=== PATIENT | male | born 1955 | race American Indian/Alaskan Native ===

== ENCOUNTER 2017-10-16 15:00 | Inpatient (IN) | payer MEDICARE ==
--- NOTE | 2017-10-16 15:25 | Cat Scan Report ---
FINAL REPORT EXAM: CT HEAD/BRAIN WO CON HISTORY: neuro deficits < 6hrs or sx present upon awakening TECHNIQUE: Standard unenhanced CT of the head at 5.0 millimeter axial increments. PRIORS: None. FINDINGS: The ventricular system is normal in size and configuration. There is mild cerebral atrophy. Remote lacunar infarct in the left thalamus is seen. There is no evidence for mass lesion, mass effect, midline shift, acute intracranial hemorrhage, or acute ischemia/ infarction. No evidence for acute skull fracture is seen. No abnormality in the overlying scalp soft tissues is seen. Visualized paranasal sinuses demonstrate mucosal thickening throughout the maxillary ethmoid sinuses bilaterally consistent with mild chronic sinusitis. Incidental cerumen in both external auditory canals are seen. IMPRESSION: Mild atrophy. Remote lacunar infarct in the left thalamus. No acute intracranial process noted. Mild chronic sinusitis
[2017-10-16 15:44] LABS: Basophils % (Auto) 0.5 % (0.0-1.8); Eosinophils # (Auto) 0.2 K/mm3 (0.0-0.4); Eosinophils % (Auto) 1.7 % (0.0-4.3); Hemoglobin 16.3 gm/dl (11.8-15.2); Lymphocytes # (Auto) 2.1 K/mm3 (1.2-5.4); Lymphocytes % (Auto) 24.1 % (13.4-35.0); Mean Corpuscular HGB Conc 33 % (32-34); Mean Corpuscular Hemoglobin 31 pg (28-32); Mean Corpuscular Volume 94 fl (84-94); Monocytes # (Auto) 0.6 K/mm3 (0.0-0.8); Platelet Count 332 K/mm3 (140-440); Red Blood Count 5.33 M/mm3 (3.65-5.03); Red Cell Distribution Width 15.5 % (13.2-15.2)
[2017-10-16 15:53] LABS: INR 0.9 (0.87-1.13)
[2017-10-16 15:54] LABS: Partial Thromboplastin Time 28.6 Sec. (24.2-36.6)
[2017-10-16 16:03] LABS: BUN/Creatinine Ratio 7; Blood Urea Nitrogen 5 mg/dL (9-20); Calcium 10.1 mg/dL (8.4-10.2); Hemolysis Index 13
--- NOTE | 2017-10-16 16:32 | Emergency Department Report ---
HPI - General Chief Complaint: Neuro Symptoms/Deficit Time Seen by Provider: 10/16/17 15:39 - HPI HPI: Patient stated he was very dizzy last night when he went to bed. He has a history of CVA, hypertension, diabetes. One woke up this morning around 9 he had some left-sided weakness significant from his baseline and noticed a right facial droop to the point that he couldn't talk as prior. He denies any fall, but remains dizzy. Patient stated he is been compliant with medications. Patient is accompanied by son who help with the history. ED Past Medical Hx - Past Medical History Hx Hypertension: Yes Hx CVA: Yes Hx Diabetes: Yes - Surgical History Past Surgical History?: No - Social History Smoking Status: Current Every Day Smoker Substance Use Type: Alcohol ED Review of Systems ROS: Stated complaint: POSSIBLE STROKE Other details as noted in HPI Comment: All other systems reviewed and negative Musculoskeletal: denies: as per HPI Skin: denies: as per HPI Neurological: weakness Physical Exam - Physical Exam Vital Signs: Vital Signs 10/16/17 10/16/17 10/16/17 15:23 15:29 15:31 Temperature 99 F Pulse Rate 64 74 Respiratory 16 16 Rate Blood Pressure 146/92 Blood Pressure [Left] O2 Sat by Pulse 96 Oximetry 10/16/17 16:00 Temperature 98.8 F Pulse Rate 65 Respiratory 16 Rate Blood Pressure Blood Pressure 176/91 [Left] O2 Sat by Pulse 100 Oximetry Physical Exam: - Physical Exam Physical Exam: - General Limitations: No Limitations General appearance: alert, in no apparent distress, obese - Head Head exam: Present: atraumatic, normocephalic - Eye Eye exam: Present: normal appearance - ENT ENT exam: Present: mucous membranes moist - Neck Neck exam: Present: normal inspection - Respiratory Respiratory exam: Present: normal lung sounds bilaterally. Absent: respiratory distress - Cardiovascular Cardiovascular Exam: Present: normal rhythm, tachycardia. Absent: systolic murmur, diastolic murmur, rubs, gallop - GI/Abdominal GI/Abdominal exam: Present: soft, normal bowel sounds - Extremities Exam Extremities exam: Present: normal inspection - Back Exam Back exam: Present: normal inspection - Neurological Exam Neurological exam: Present: alert, left-sided weakness 2 out of 5. Right facial droop. NIH Stroke Scale: 2 points, at 1355 - Psychiatric Psychiatric exam: normal affect and mood - Skin Skin exam: Present: warm, dry, intact, normal color. Absent: rash ED Course Vital Signs 10/16/17 10/16/17 10/16/17 15:23 15:29 15:31 Temperature 99 F Pulse Rate 64 74 Respiratory 16 16 Rate Blood Pressure 146/92 Blood Pressure [Left] O2 Sat by Pulse 96 Oximetry 10/16/17 16:00 Temperature 98.8 F Pulse Rate 65 Respiratory 16 Rate Blood Pressure Blood Pressure 176/91 [Left] O2 Sat by Pulse 100 Oximetry ED Medical Decision Making - Lab Data Result diagrams: 10/16/17 15:32 10/16/17 15:32 Critical care attestation.: If time is entered above; I have spent that time in minutes in the direct care of this critically ill patient, excluding procedure time. ED Disposition Condition: Stable Referrals: PRIMARY CARE, [Primary Care Provider] - 3-5 Days
[2017-10-16] MEDS ORDERED: SODIUM CHLORIDE FLUSH SYRINGE 10 ML IV PRN (22:39)
[2017-10-16] MEDS ORDERED: MORPHINE IV PRN (22:39)
[2017-10-16] MEDS ORDERED: PERCOCET 5/325 PO PRN (22:39)
[2017-10-16] MEDS ORDERED: ZOFRAN IV PRN (22:39)
[2017-10-16] MEDS ORDERED: TYLENOL PO PRN (22:39)
[2017-10-16] MEDS ORDERED: SODIUM CHLORIDE FLUSH SYRINGE 10 ML INJ PRN (22:40)
--- NOTE | 2017-10-16 22:43 | History and Physical Report ---
History of Present Illness Date of examination: 10/16/17 Date of admission: 10/16/17 16:32 Chief complaint: CC L sided weakness since last night History of present illness: NINILCHIK: 62 y/o AAM with PMH of HTN T2DM HLD and past CVA with Rt Hemiparesis comes in for Lt sided weakness since last night.Able to walk but feels weak on L side.Also had difficulty talking.No fever or chills. Past Medical History Hx Hypertension: Yes Hx CVA: Yes Hx Diabetes: Yes -Surgical History Past Surgical History?: No -Social History Smoking Status: Current Every Day Smoker Substance Use Type: Alcohol Family history Htn Review of Systems Stated complaint: POSSIBLE STROKE Other details as noted in HPI Comment: All other systems reviewed and negative Musculoskeletal: denies: as per HPI Skin: denies: as per HPI Neurological: weakness Medications and Allergies Allergies Allergy/AdvReac Type Severity Reaction Status Date / Time No Known Allergies Allergy Verified 10/16/17 22:42 Home Medications Medication Instructions Recorded Confirmed Last Taken Type AtorvaSTATin [Lipitor] 80 mg PO QHS 10/16/17 10/16/17 08/17/17 History Hydrochlorothiazide 37.5 mg PO DAILY 10/16/17 10/16/17 08/17/17 History Lisinopril [Zestril TAB] 40 mg PO DAILY 10/16/17 10/16/17 08/17/17 History Metoprolol [Lopressor TAB] 25 mg PO BID 10/16/17 10/16/17 08/17/17 History Pioglitazone HCl [Actos] 30 mg PO DAILY 10/16/17 10/16/17 08/17/17 History amLODIPine [Norvasc] 10 mg PO DAILY 10/16/17 10/16/17 08/17/17 History metFORMIN [Glucophage] 1,000 mg PO BID 10/16/17 10/16/17 2 Months Ago History ~08/18/17 Exam - Constitutional Vitals: Temp Pulse Resp BP Pulse Ox 98.4 F 63 20 166/91 98 10/16/17 22:07 10/16/17 22:07 10/16/17 22:07 10/16/17 22:07 10/16/17 22:07 General appearance: Present: no acute distress, well-nourished - EENT Eyes: Present: PERRL ENT: hearing intact, clear oral mucosa - Neck Neck: Present: supple, normal ROM - Respiratory Respiratory effort: normal Respiratory: bilateral: CTA - Cardiovascular Heart rate: 61 Rhythm: regular Heart Sounds: Present: S1 & S2. Absent: rub, click - Extremities Extremities: no ischemia, pulses intact, pulses symmetrical, No edema Peripheral Pulses: within normal limits - Abdominal General gastrointestinal: Present: soft, non-tender, non-distended, normal bowel sounds Male genitourinary: Present: normal - Integumentary Integumentary: Present: clear, warm, dry - Musculoskeletal Musculoskeletal: gait normal, strength equal bilaterally - Psychiatric Psychiatric: appropriate mood/affect, intact judgment & insight, cooperative - Neurologic Neurologic: CNII-XII intact, focal deficits, other (LUE/LLE --weakness 3/5 power Gait abnormal) Results - Labs CBC & Chem 7: 10/17/17 06:08 10/17/17 06:08 Labs: Laboratory Last Values WBC 8.7 K/mm3 (4.5-11.0) 10/16/17 15:32 RBC 5.33 M/mm3 (3.65-5.03) H 10/16/17 15:32 Hgb 16.3 gm/dl (11.8-15.2) H 10/16/17 15:32 Hct 50.0 % (35.5-45.6) H 10/16/17 15:32 MCV 94 fl (84-94) 10/16/17 15:32 MCH 31 pg (28-32) 10/16/17 15:32 MCHC 33 % (32-34) 10/16/17 15:32 RDW 15.5 % (13.2-15.2) H 10/16/17 15:32 Plt Count 332 K/mm3 (140-440) 10/16/17 15:32 Lymph % (Auto) 24.1 % (13.4-35.0) 10/16/17 15:32 [place] % (Auto) 7.0 % (0.0-7.3) 10/16/17 15:32 Eos % (Auto) 1.7 % (0.0-4.3) 10/16/17 15:32 Baso % (Auto) 0.5 % (0.0-1.8) 10/16/17 15:32 Lymph # 2.1 K/mm3 (1.2-5.4) 10/16/17 15:32 [place] # 0.6 K/mm3 (0.0-0.8) 10/16/17 15:32 Eos # 0.2 K/mm3 (0.0-0.4) 10/16/17 15:32 Baso # 0.0 K/mm3 (0.0-0.1) 10/16/17 15:32 Seg Neutrophils % 66.7 % (40.0-70.0) 10/16/17 15:32 Seg Neutrophils # 5.8 K/mm3 (1.8-7.7) 10/16/17 15:32 PT 12.6 Sec. (12.2-14.9) 10/16/17 15:32 INR 0.90 (0.87-1.13) 10/16/17 15:32 APTT 28.6 Sec. (24.2-36.6) 10/16/17 15:32 Thrombin Time 16.1 Sec. (15.1-19.6) 10/16/17 15:32 Sodium 139 mmol/L (137-145) 10/16/17 15:32 Potassium 3.7 mmol/L (3.6-5.0) 10/16/17 15:32 Chloride 95.3 mmol/L (98-107) L 10/16/17 15:32 Carbon Dioxide 31 mmol/L (22-30) H 10/16/17 15:32 Anion Gap 16 mmol/L 10/16/17 15:32 BUN 5 mg/dL (9-20) L 10/16/17 15:32 Creatinine 0.7 mg/dL (0.8-1.5) L 10/16/17 15:32 Estimated GFR > 60 ml/min 10/16/17 15:32 BUN/Creatinine Ratio 7 % 10/16/17 15:32 Glucose 211 mg/dL (75-100) H 10/16/17 15:32 Calcium 10.1 mg/dL (8.4-10.2) 10/16/17 15:32 Troponin T < 0.010 ng/mL (0.00-0.029) 10/16/17 15:32 Short CBC 10/16/17 10/17/17 Range/Units 15:32 06:08 WBC 8.7 11.1 H (4.5-11.0) K/mm3 Hgb 16.3 H 14.6 (11.8-15.2) gm/dl Hct 50.0 H 44.0 D (35.5-45.6) % Plt Count 332 299 (140-440) K/mm3 BMP 10/16/17 10/17/17 15:32 06:08 Sodium 139 140 Potassium 3.7 3.3 L Chloride 95.3 L 99.2 Carbon Dioxide 31 H 25 BUN 5 L 6 L Creatinine 0.7 L 0.5 L Glucose 211 H 166 H Calcium 10.1 9.5 Cardiac Enzymes 10/16/17 Range/Units 15:32 Troponin T < 0.010 (0.00-0.029) ng/mL Liver Function 10/17/17 Range/Units 06:08 Total Bilirubin 0.40 (0.1-1.2) mg/dL AST 12 (5-40) units/L ALT 13 (7-56) units/L Alkaline Phosphatase 62 (35-129) units/L Albumin 3.5 L (3.9-5) g/dL - Imaging and Cardiology EKG: report reviewed (NSR 68/min) Imaging and Cardiology: CT Head IMPRESSION: Mild atrophy. Remote lacunar infarct in the left thalamus. No acute intracranial process noted. Mild chronic sinusitis Assessment and Plan Advance Directives: Yes (Full code) VTE prophylaxis?: Chemical Plan of care discussed with patient/family: Yes - Patient Problems (1) Acute CVA (cerebrovascular accident) Current Visit: Yes Status: Acute Plan to address problem: Rt hemispheric Out of window for TPA CVA w/u involving MRI/MRA/CDS/ECHO Neuro consult requested CT head old left lacunar infarct c/w old Rt Hemiparesis (2) Hypokalemia Current Visit: Yes Status: Acute Plan to address problem: Supplemented (3) HTN (hypertension) Current Visit: Yes Status: Chronic Qualifiers: Hypertension type: essential hypertension Qualified Code(s): I10 - Essential (primary) hypertension Plan to address problem: Cont antihypertensives (4) T2DM (type 2 diabetes mellitus) Current Visit: Yes Status: Chronic Qualifiers: Diabetes mellitus termite exterminator insulin use: without termite exterminator use Plan to address problem: Cont oral hypoglycemics and coverage Check A1c (5) HLD (hyperlipidemia) Current Visit: Yes Status: Chronic Qualifiers: Hyperlipidemia type: mixed hyperlipidemia Qualified Code(s): E78.2 - Mixed hyperlipidemia Plan to address problem: Cont statins (6) Malnutrition Current Visit: Yes Status: Chronic Qualifiers: Protein-calorie malnutrition severity: mild Plan to address problem: Dietitian consult (7) DVT prophylaxis Current Visit: Yes Status: Acute Plan to address problem: on Heparin
[2017-10-17 06:35] LABS: Basophils # (Auto) 0.1 K/mm3 (0.0-0.1); Basophils % (Auto) 0.7 % (0.0-1.8); Eosinophils # (Auto) 0.2 K/mm3 (0.0-0.4); Hemoglobin 14.6 gm/dl (11.8-15.2); Lymphocytes # (Auto) 3.1 K/mm3 (1.2-5.4); Lymphocytes % (Auto) 28.1 % (13.4-35.0); Mean Corpuscular HGB Conc 33 % (32-34); Mean Corpuscular Hemoglobin 31 pg (28-32); Mean Corpuscular Volume 92 fl (84-94); Monocytes # (Auto) 0.9 K/mm3 (0.0-0.8); Monocytes % (Auto) 7.7 % (0.0-7.3); Platelet Count 299 K/mm3 (140-440); Red Blood Count 4.81 M/mm3 (3.65-5.03); Red Cell Distribution Width 15.3 % (13.2-15.2)
[2017-10-17 07:03] LABS: Alanine Aminotransferase 13 units/L (7-56); Albumin 3.5 g/dL (3.9-5); BUN/Creatinine Ratio 12; Blood Urea Nitrogen 6 mg/dL (9-20); Calcium 9.5 mg/dL (8.4-10.2); Chol/HDL Ratio 7.38 %; HDL Cholesterol 26 mg/dL (40-59); Hemolysis Index 3; LDL Cholesterol,Direct 141 mg/dL (50-130)
[2017-10-17] MEDS: HumaLOG SUB-Q SCH ×4 (07:50→22:46)
[2017-10-17] MEDS ORDERED: K-DUR PO NR (09:00)
[2017-10-17] MEDS: GLUCOPHAGE PO SCH ×2 (09:26→21:04)
[2017-10-17] MEDS: ACTOS PO SCH (09:27)
[2017-10-17] MEDS ORDERED: NON-FORMULARY (Pioglitazone Hcl [Actos] 30 MG) PO SCH (10:00)
[2017-10-17] MEDS ORDERED: ASPIRIN PO NR (10:37)
[2017-10-17] MEDS: LOPRESSOR PO SCH ×2 (11:25→22:31)
[2017-10-17] MEDS: NORVASC PO SCH (11:25)
[2017-10-17] MEDS: ZESTRIL PO SCH (11:26)
[2017-10-17] MEDS: HEPARIN SUB-Q SCH ×2 (11:31→22:46)
[2017-10-17] MEDS ORDERED: PNEUMOVAX 23 IM ONE (12:00)
[2017-10-17] MEDS ORDERED: Fluarix Quad 2017-2018(36 MOS+ IM ONE (12:00)
--- NOTE | 2017-10-17 12:42 | Consultation ---
History of Present Illness Consult date: 10/17/17 Requesting physician: LUCIANO VILLALOBOS Reason for Consult: stroke Chief complaint: weakness left side History of present illness: This 61-year-old right-handed -Bangladeshi male per ER physician yesterday: "was very dizzy last night when he went to bed. He has a history of CVA, hypertension, diabetes. One woke up this morning around 9 he had some left- sided weakness significant from his baseline and noticed a right facial droop to the point that he couldn't talk as prior. He denies any fall, but remains dizzy." He states he noticed Fridays some dizziness and left arm and leg weakness and numbness of the left side of his face which persisted or became more noticeable sided asymmetric came in yesterday. He did not check his blood pressure at home. He says he takes 81 mg aspirin daily. His bag of medications shows metformin, pioglitazone, hydrochlorothiazide, amlodipine, metoprolol, atorvastatin 80 mg, lisinopril 40 mg. He gives a history of stroke affecting his right side 2 or 3 years ago since which he has used a cane. Past History Past Medical History: diabetes, hypertension, stroke Social history: single, lives with family (lives with brother, has 3 grown children.), smoking (1 pack per week), alcohol abuse (one provider Shaniqua twice a week, 3 small beers per week spread out). denies: prescription drug abuse, IV drug use (no illicit drugs. 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) Medications and Allergies Allergies Allergy/AdvReac Type Severity Reaction Status Date / Time No Known Allergies Allergy Verified 10/16/17 22:42 Home Medications Medication Instructions Recorded Confirmed Last Taken Type AtorvaSTATin [Lipitor] 80 mg PO QHS 10/16/17 10/16/17 08/17/17 History Hydrochlorothiazide 37.5 mg PO DAILY 10/16/17 10/16/17 08/17/17 History Lisinopril [Zestril TAB] 40 mg PO DAILY 10/16/17 10/16/17 08/17/17 History Metoprolol [Lopressor TAB] 25 mg PO BID 10/16/17 10/16/17 08/17/17 History Pioglitazone HCl [Actos] 30 mg PO DAILY 10/16/17 10/16/17 08/17/17 History amLODIPine [Norvasc] 10 mg PO DAILY 10/16/17 10/16/17 08/17/17 History metFORMIN [Glucophage] 1,000 mg PO BID 10/16/17 10/16/17 2 Months Ago History ~08/18/17 Active Meds: Active Medications Acetaminophen (Tylenol) 650 mg PO Q4H PRN PRN Reason: Pain MILD(1-3)/Fever >100.5/BISHOP Amlodipine Besylate (Norvasc) 10 mg PO DAILY [facility] Aspirin (Aspirin) 325 mg PO ONCE NR Stop: 10/17/17 13:00 Aspirin (Baby Aspirin) 81 mg PO QDAY [facility] Atorvastatin Calcium (Lipitor) 80 mg PO QHS [facility] Heparin Sodium (Porcine) (Heparin) 5,000 unit SUB-Q Q12HR [facility] Potassium Chloride (Kcl 10meq/100ml) 10 meq in 100 mls @ 100 mls/hr IV Q1H [facility] Stop: 10/17/17 12:59 Insulin Human Lispro (Humalog) 0 unit SUB-Q ACHS [facility]; Protocol Lisinopril (Zestril) 40 mg PO DAILY [facility] Metformin HCl (Glucophage) 1,000 mg PO BIDDIAB [facility] Metoprolol Tartrate (Lopressor) 25 mg PO BID [facility] Morphine Sulfate (Morphine) 2 mg IV Q4H PRN PRN Reason: Pain, Moderate (4-6) Nicotine (Habitrol) 7 mg TD Q24H [facility] Ondansetron HCl (Zofran) 4 mg IV Q8H PRN PRN Reason: Nausea And Vomiting Oxycodone/Acetaminophen (Percocet 5/325) 1 tab PO Q6H PRN PRN Reason: Pain, Moderate (4-6) Pioglitazone HCl (Actos) 30 mg PO QDDIAB [facility] Sodium Chloride (Sodium Chloride Flush Syringe 10 Ml) 10 ml IV BID [facility] Sodium Chloride (Sodium Chloride Flush Syringe 10 Ml) 10 ml IV PRN PRN PRN Reason: LINE FLUSH Review of Systems All systems: negative (no headaches, dizziness only this past Tuesday, no snoring but takes 15-20 minute nap once a day but no other dozing off. Does not drive. No memory problems.) Physical Examination - Vital Signs Vital Signs: Vital Signs Temp Pulse Resp BP 99 F 64 16 146/92 10/16/17 15:23 10/16/17 15:23 10/16/17 15:23 10/16/17 15:23 - Physical Exam Narrative exam: General Appearance: well developed well nourished (per BMI) early 60s - Bangladeshi male in NAD, using nasal oxygen. HEENT: atraumatic, normocephalic; no bruits, 2+ Gladys without soreness or induration or enlargement, sclerae nonicteric. Oropharynx pink and moist. Neck: supple, no bruits. Heart: no murmur or extra sounds. Extremities: no clubbing, cyanosis or edema. 2+ posterior tibial pulses bilaterally. Neurologic Exam: Mental Status: Awake, alert, oriented to October 17 but cannot give year until I give him 1999 as prompt but then gives "18" , speech is slurred, names pen and nozzle or filter of pen instead of tip but gets comb and its teeth, and abstracts well. Names President but not Dimension Quarry Supervisor, serial 7's cannot be done and gives 5+7 = 16, no right-left confusion, gets 2 of 3 objects at 3 minutes, spells WORLD backwards with one transposition. Cranial Nerves: mchugh full, no papilledema, SVPs present, PERRLA, EOMs full with gaze evoked horizontal nystagmus with quick phase to left on left lateral gaze but no diplopia, facial sensation decreased to pinprick in the left V1 and V2 but intact to light touch, down turned left corner of mouth, Pinon is midline , palate rises symmetrically to phonation and gags are positive, shoulder shrug is 5 right and 0 left, tongue protrudes midline. Cerebellar: finger to nose dysmetric right but cannot do on the left, heel to prince dysmetric right and cannot do on the left due to weakness. Sensory: intact to light touch and pinprick, decreased vibrations right ankle and toes and left toes. Double simultaneous stimulation sometimes shows extinction on either foot though sometimes intact. Motor Exam Upper Extremities: No drift or pronation on the right, flaccid on the left. Internal rotation is 4- on the left, triceps 1+ in the left, biceps and breaker machine operator are 0 on the left. Conveyor Attendant is 5 on the right, tone is perhaps slightly increased on the right but decreased on the left. No atrophy or fasciculations are noted visually. Susie ok right but can't do on the left. Motor Exam Lower Extremities: Lifts right leg well with quadriceps, anterior tibial and gastrocnemius all 5. Quadriceps is 2+ left, cannot lift heel off bed even with knee supported. Anterior tibialis 5- left and gastrocnemius is 4 + left. Left leg is abducted. Susie very slow on the left but normal on the right. Tone is normal. No atrophy or fasciculations are noted visually. Reflexes: Palmomental, snout and jaw jerk are negative. Triceps are 1 right and trace left, biceps are 1+ right and trace left and brachioradialis are 1 right and trace left. Sanjana's is negative bilaterally. Knee jerks are 1+ right and 0 left even with reinforcement, and ankle jerks are 0 bilaterally becoming 1 on the right with reinforcement and with slowing of relaxation phase and 0 on the left remaining 0 even with reinforcement and without clonus. Toes are downgoing right and slightly downgoing left to Babinski testing. - Assessment Assessment Interval: Baseline - Level of Consciousness 1a. Level of Consciousness: alert - LOC Questions 1b. LOC Questions: answers correctly - LOC Command 1c. LOC Commands: performs tasks correctly - Best Gaze 2. Best Gaze: normal - Visual 3. Visual: no visual loss - Facial Palsy 4. Facial Palsy: normal symmetrical movement - Motor Arm 5b. Motor Arm Right: no drift - Motor Leg 6a. Motor Leg Left: no drift - Limb Ataxia 7. Limb Ataxia: absent - Sensory 8. Sensory: normal - Best Language 9. Best Language: no aphasia - Dysarthria 10. Dysarthria: mild/moderate dysarthria - Extinction and Inattention 11. Extinction/Inattention: no abnormality Results - Laboratory Findings CBC and BMP: 10/17/17 06:08 10/17/17 06:08 Abnormal Lab Findings: Abnormal Labs 10/16/17 10/16/17 10/16/17 15:32 15:32 23:07 WBC RBC 5.33 H Hgb 16.3 H Hct 50.0 H RDW 15.5 H Nelson % (Auto) Nelson # Potassium Chloride 95.3 L Carbon Dioxide 31 H BUN 5 L Creatinine 0.7 L Glucose 211 H Hemoglobin A1c 8.7 H Magnesium Albumin LDL Cholesterol Direct HDL Cholesterol 10/17/17 10/17/17 10/17/17 06:08 06:08 06:08 WBC 11.1 H RBC Hgb Hct RDW 15.3 H Nelson % (Auto) 7.7 H Nelson # 0.9 H Potassium 3.3 L Chloride Carbon Dioxide BUN 6 L Creatinine 0.5 L Glucose 166 H Hemoglobin A1c Magnesium 1.40 L Albumin 3.5 L LDL Cholesterol Direct 141 H HDL Cholesterol 26 L Assessment and Plan Impression: 1. Stroke, embolic 2. Hypertension 3. Diabetes 4. Tobacco abuse 5. ETOH abuse Plan: 1. MRI/MRA brain pending. 2. Echo with bubbles pending. 3. Ordered nicotine 7 mg patch. He said he has not been able to buy patches since too expensive. I suggested he buy nicotine gum once he is home. 4. PT/OT previously ordered. 5. Would not change to Plavix since should stop smoking and decrease ETOH first. 6. Depending on MRI results, may also need 30 day event monitoring for PAF as outpatient. 7. Will provide addendum after reviewing echo and MRI/MRA results and results of Duplex. Will then sign off if no unusual findings. 45 min spent including later review of 100's of MRI images. Thank you for an interesting consultation on this unfortunate early 60's man.
--- NOTE | 2017-10-17 13:32 | Progress Note ---
Assessment and Plan Assessment and plan: Acute CVA (cerebrovascular accident) with new left hemiparesis -Continue aspirin and Lipitor. -Continue PT/OT. -Head CT scan showed remote lacunar infarct in the left thalamus. -MRI brain and MRA head pending. -Neurology following. Hypokalemia and hypomagnesemia. -On repletion, we will monitor levels. Uncontrolled HTN (hypertension) -Continue metoprolol and amlodipine, and adjust as needed. NIDDM (type 2 diabetes mellitus) -Blood glucose controlled on sliding scale insulin and metformin. -A1c: 8.7 HLD (hyperlipidemia) -Cont statins Mild protein-calorie malnutrition -Dietitian following. Disposition: Discharge patient when medically stable. He is likely to need rehabilitation placement. History Interval history: Patient is a 62-year-old male admitted for acute CVA. He denies any new complaints. Hospitalist Physical - Constitutional Vitals: Temp Pulse Resp BP Pulse Ox 98.2 F 58 L 20 158/85 99 10/17/17 09:08 10/17/17 09:08 10/17/17 09:08 10/17/17 09:08 10/17/17 12:04 General appearance: Present: no acute distress, well-nourished - EENT Eyes: Present: PERRL, EOM intact ENT: hearing intact - Neck Neck: Present: supple - Respiratory Respiratory effort: normal Respiratory: bilateral: CTA - Cardiovascular Rhythm: regular Heart Sounds: Present: S1 & S2 - Extremities Extremities: No edema - Abdominal General gastrointestinal: soft, non-tender, normal bowel sounds - Neurologic Neurologic: other (left hemiparesis) Results - Labs CBC & Chem 7: 10/17/17 06:08 10/17/17 06:08 Labs: Laboratory Last Values WBC 11.1 K/mm3 (4.5-11.0) H 10/17/17 06:08 RBC 4.81 M/mm3 (3.65-5.03) 10/17/17 06:08 Hgb 14.6 gm/dl (11.8-15.2) 10/17/17 06:08 Hct 44.0 % (35.5-45.6) D 10/17/17 06:08 MCV 92 fl (84-94) 10/17/17 06:08 MCH 31 pg (28-32) 10/17/17 06:08 MCHC 33 % (32-34) 10/17/17 06:08 RDW 15.3 % (13.2-15.2) H 10/17/17 06:08 Plt Count 299 K/mm3 (140-440) 10/17/17 06:08 Lymph % (Auto) 28.1 % (13.4-35.0) 10/17/17 06:08 Jones % (Auto) 7.7 % (0.0-7.3) H 10/17/17 06:08 Eos % (Auto) 2.0 % (0.0-4.3) 10/17/17 06:08 Baso % (Auto) 0.7 % (0.0-1.8) 10/17/17 06:08 Lymph # 3.1 K/mm3 (1.2-5.4) 10/17/17 06:08 Jones # 0.9 K/mm3 (0.0-0.8) H 10/17/17 06:08 Eos # 0.2 K/mm3 (0.0-0.4) 10/17/17 06:08 Baso # 0.1 K/mm3 (0.0-0.1) 10/17/17 06:08 Seg Neutrophils % 61.5 % (40.0-70.0) 10/17/17 06:08 Seg Neutrophils # 6.8 K/mm3 (1.8-7.7) 10/17/17 06:08 PT 12.6 Sec. (12.2-14.9) 10/16/17 15:32 INR 0.90 (0.87-1.13) 10/16/17 15:32 APTT 28.6 Sec. (24.2-36.6) 10/16/17 15:32 Thrombin Time 16.1 Sec. (15.1-19.6) 10/16/17 15:32 Sodium 140 mmol/L (137-145) 10/17/17 06:08 Potassium 3.3 mmol/L (3.6-5.0) L 10/17/17 06:08 Chloride 99.2 mmol/L (98-107) 10/17/17 06:08 Carbon Dioxide 25 mmol/L (22-30) 10/17/17 06:08 Anion Gap 19 mmol/L 10/17/17 06:08 BUN 6 mg/dL (9-20) L 10/17/17 06:08 Creatinine 0.5 mg/dL (0.8-1.5) L 10/17/17 06:08 Estimated GFR > 60 ml/min 10/17/17 06:08 BUN/Creatinine Ratio 12 % 10/17/17 06:08 Glucose 166 mg/dL (75-100) H 10/17/17 06:08 Hemoglobin A1c 8.7 % (4-6) H 10/16/17 23:07 Calcium 9.5 mg/dL (8.4-10.2) 10/17/17 06:08 Magnesium 1.40 mg/dL (1.7-2.3) L 10/17/17 06:08 Total Bilirubin 0.40 mg/dL (0.1-1.2) 10/17/17 06:08 AST 12 units/L (5-40) 10/17/17 06:08 ALT 13 units/L (7-56) 10/17/17 06:08 Alkaline Phosphatase 62 units/L (35-129) 10/17/17 06:08 Troponin T < 0.010 ng/mL (0.00-0.029) 10/16/17 15:32 Total Protein 6.6 g/dL (6.3-8.2) 10/17/17 06:08 Albumin 3.5 g/dL (3.9-5) L 10/17/17 06:08 Albumin/Globulin Ratio 1.1 % 10/17/17 06:08 Triglycerides 99 mg/dL (2-149) 10/17/17 06:08 Cholesterol 192 mg/dL (50-199) 10/17/17 06:08 LDL Cholesterol Direct 141 mg/dL (50-130) H 10/17/17 06:08 HDL Cholesterol 26 mg/dL (40-59) L 10/17/17 06:08 Cholesterol/HDL Ratio 7.38 % 10/17/17 06:08
[2017-10-17] MEDS: SODIUM CHLORIDE FLUSH SYRINGE 10 ML IV SCH (14:33)
[2017-10-17] MEDS ORDERED: MAGNESIUM SULFATE 2GM/50ML 2 GM/50 ML BAG IV ONE (14:34)
[2017-10-17] MEDS: KCL 10MEQ/100ML 10 MEQ/100 ML BAG IV SCH (21:04)
[2017-10-17] MEDS: HABITROL TD SCH (21:04)
[2017-10-18] MEDS: SODIUM CHLORIDE FLUSH SYRINGE 10 ML IV SCH ×3 (00:49→21:20)
--- NOTE | 2017-10-18 08:57 | Progress Note ---
Assessment and Plan Acute CVA (cerebrovascular accident) with new left hemiparesis -Continue aspirin and Lipitor. -Continue PT/OT. -Head CT scan showed remote lacunar infarct in the left thalamus. -MRI brain showed subacute ischemia on the right emmanuelle and MRA was normal -Neurology following. -Echo shows 55-60% EF. Hypokalemia and hypomagnesemia. -Will replete. we will monitor levels. Uncontrolled HTN (hypertension) -Continue with metoprolol and amlodipine. NIDDM (type 2 diabetes mellitus) -Blood glucose controlled on sliding scale insulin and metformin. and Consistent CHO diet -A1c: 8.7 HLD (hyperlipidemia) -Cont statins Mild protein-calorie malnutrition -Dietitian following. DVT PPx with lovenox Disposition: Discharge patient when medically stable. He is likely to need rehabilitation placement. Subjective Date of service: 10/18/17 Principal diagnosis: acute stroke Interval history: Pt seen and examined. No new complaint. Going to acute inpt rehab. Review laboratory and radiological data Objective - Constitutional Vitals: Vital Signs - 12hr 10/17/17 10/17/17 10/17/17 21:00 21:19 21:48 Temperature 98.2 F Pulse Rate 78 57 L Respiratory 18 Rate Blood Pressure Blood Pressure 158/85 [Left] O2 Sat by Pulse 99 99 Oximetry 10/17/17 10/17/17 10/18/17 22:00 22:31 01:02 Temperature 98.8 F Pulse Rate 58 L 77 Respiratory 20 18 Rate Blood Pressure 153/90 Blood Pressure 153/93 [Left] O2 Sat by Pulse 99 Oximetry 10/18/17 10/18/17 05:00 07:01 Temperature 98.3 F Pulse Rate 77 95 H Respiratory 18 Rate Blood Pressure Blood Pressure 141/90 [Left] O2 Sat by Pulse 95 Oximetry General appearance: Present: no acute distress, well-nourished - EENT Eyes: PERRL, EOM intact - Neck Neck: supple, normal ROM - Respiratory Respiratory effort: normal Respiratory: bilateral: CTA - Cardiovascular Rhythm: regular Heart Sounds: Present: S1 & S2. Absent: gallop, rub Extremities: pulses intact, No edema, normal color, Full ROM - Gastrointestinal General gastrointestinal: Present: soft, non-tender, non-distended, normal bowel sounds - Integumentary Integumentary: clear, warm, dry - Musculoskeletal Musculoskeletal: left sided weakness - Neurologic Neurologic: CNII-XII intact, other (left hemiparesis) - Psychiatric Psychiatric: memory intact, appropriate mood/affect, intact judgment & insight - Labs CBC & Chem 7: 10/17/17 06:08 10/18/17 07:41 Labs: Abnormal lab results 10/17/17 10/17/17 10/17/17 Range/Units 06:08 12:22 17:31 POC Glucose 217 H 193 H (70-105) Magnesium 1.40 L (1.7-2.3) mg/dL 10/17/17 Range/Units 22:00 POC Glucose 215 H (70-105) Magnesium (1.7-2.3) mg/dL
[2017-10-18] MEDS ORDERED: K-DUR PO NR (08:58)
[2017-10-18] MEDS: HumaLOG SUB-Q SCH ×4 (09:10→22:00)
--- NOTE | 2017-10-18 09:31 | Magnetic Resonance Report ---
MRI OF THE BRAIN WITHOUT CONTRAST: HISTORY: Stroke PROCEDURE: Multiplanar, multisequence MR imaging of the brain without IV contrast was performed. FINDINGS: CT head without contrast dated 10/16/17 was reviewed. MRI demonstrates 2 areas of diffusion restriction in the right emmanuelle measuring 1.2 cm and 1.1 cm on diffusion image 13. There is no evidence for hemorrhage, mass or extra-axial fluid collection. Mild nonspecific chronic white matter changes are again noted. Chronic 8 mm lacunar infarct in the left thalamus is again noted. The midline structures are central. The basal cisterns are patent. Normal ventricular size. The orbital cavities and sella turcica demonstrate no abnormality. Mild mucosal thickening is noted in the ethmoid and maxillary sinuses. 1 cm mucous retention cyst in the inferior left maxillary sinus. The mastoid air cells are adequately aerated. IMPRESSION: 2 areas of subacute ischemia are identified in the right emmanuelle as described.
--- NOTE | 2017-10-18 09:31 | Magnetic Resonance Report ---
MRA HEAD WITHOUT CONTRAST HISTORY: Stroke. [id number] imaging with MIP reformations of the [place] is submitted. NASCET criteria were utilized. The arteries appear widely patent and free of hemodynamically significant stenosis, aneurysm or dissection. IMPRESSION: Unremarkable MRA head.
[2017-10-18 09:39] LABS: BUN/Creatinine Ratio 13; Blood Urea Nitrogen 8 mg/dL (9-20); Calcium 9.8 mg/dL (8.4-10.2); Hemolysis Index 8
[2017-10-18] MEDS ORDERED: HYDROCHLOROTHIAZIDE PO SCH (10:00)
[2017-10-18] MEDS: HCTZ PO SCH ×2 (11:07→11:08)
[2017-10-18] MEDS: ZESTRIL PO SCH (11:08)
[2017-10-18] MEDS: LOPRESSOR PO SCH ×2 (11:08→21:20)
[2017-10-18] MEDS: NORVASC PO SCH (11:09)
[2017-10-18] MEDS: BABY ASPIRIN PO SCH (11:10)
[2017-10-18] MEDS: ACTOS PO SCH (11:15)
[2017-10-18] MEDS: GLUCOPHAGE PO SCH ×2 (11:16→17:39)
[2017-10-18] MEDS: HEPARIN SUB-Q SCH ×2 (11:20→21:23)
--- NOTE | 2017-10-18 16:59 | Cat Scan Report ---
FINAL REPORT EXAM: CT HEAD/BRAIN WO CON HISTORY: ANGELIQUET FELL ON FLOOR TECHNIQUE: CT head without contrast PRIORS: None. FINDINGS: No acute intra-axial or extra-axial hemorrhage is identified. There is no evidence of midline shift or mass effect. The ventricles and sulci are within normal limits. Aleman-white matter differentiation is intact. No acute parenchymal abnormalities seen. There is a focal hypodensity within the left thalamus consistent with remote lacunar infarct. There is focal hypodensity within the emmanuelle consistent with remote infarct. Bony calvarium is grossly intact. Visualized portions of the mastoids and paranasal sinuses are unremarkable. IMPRESSION: Remote left thalamic lacunar and pontine infarcts No acute abnormality identified
[2017-10-18] MEDS: HABITROL TD SCH (17:06)
[2017-10-19] MEDS ORDERED: MAGNESIUM SULFATE IV ONE (00:04)
[2017-10-19] MEDS ORDERED: MAGNESIUM SULFATE 1 GM in NACL 0.9% 50 ML IV ONE (00:30)
[2017-10-19] MEDS: ACTOS PO SCH (08:45)
[2017-10-19] MEDS: BABY ASPIRIN PO SCH (13:05)
[2017-10-19] MEDS: GLUCOPHAGE PO SCH ×2 (13:05→17:30)
[2017-10-19] MEDS: HCTZ PO SCH ×2 (13:06→13:15)
[2017-10-19] MEDS: NORVASC PO SCH (13:06)
[2017-10-19] MEDS: HEPARIN SUB-Q SCH ×2 (13:07→22:33)
[2017-10-19] MEDS: SODIUM CHLORIDE FLUSH SYRINGE 10 ML IV SCH ×2 (13:15→23:04)
[2017-10-19] MEDS: HumaLOG SUB-Q SCH ×3 (13:15→19:48)
[2017-10-19] MEDS: LOPRESSOR PO SCH ×2 (19:47→22:32)
[2017-10-19] MEDS: HABITROL TD SCH (19:49)
--- NOTE | 2017-10-19 22:24 | Progress Note ---
Assessment and Plan Acute CVA (cerebrovascular accident) with new left hemiparesis -Continue aspirin and Lipitor, PT/OT. -Head CT scan showed remote lacunar infarct in the left thalamus. -MRI brain showed subacute ischemia on the right emmanuelle and MRA was normal -Neurology following. -Echo shows 55-60% EF. Hypokalemia and hypomagnesemia. -Will replete. we will monitor levels. Uncontrolled HTN (hypertension) -Continue with metoprolol and amlodipine. NIDDM (type 2 diabetes mellitus) -Blood glucose controlled on sliding scale insulin and metformin. and Consistent CHO diet -A1c: 8.7 HLD (hyperlipidemia) -Cont statins Mild protein-calorie malnutrition -Dietitian following. DVT PPx with lovenox Disposition: Discharge patient when medically stable. He is likely to need rehabilitation placement. Subjective Date of service: 10/19/17 Principal diagnosis: acute stroke Interval history: Pt seen and examined. No new complaint. Awaiting placement for acute inpt rehab. Review laboratory and radiological data Objective - Constitutional Vitals: Vital Signs - 12hr 10/19/17 10/19/17 10/19/17 13:06 17:00 19:03 Temperature 98.1 F 98.0 F Pulse Rate 92 H 104 H Respiratory 16 16 Rate Blood Pressure 131/82 Blood Pressure 121/78 132/79 [Right] O2 Sat by Pulse 97 97 100 Oximetry 10/19/17 19:45 Temperature 98.5 F Pulse Rate 97 H Respiratory 20 Rate Blood Pressure 120/77 Blood Pressure [Right] O2 Sat by Pulse 98 Oximetry General appearance: Present: no acute distress, well-nourished - EENT Eyes: PERRL, EOM intact - Neck Neck: supple, normal ROM - Respiratory Respiratory effort: normal Respiratory: bilateral: CTA - Breasts Breasts: normal - Cardiovascular Rhythm: regular Heart Sounds: Present: S1 & S2. Absent: gallop, rub Extremities: pulses intact, No edema, normal color, Full ROM - Gastrointestinal General gastrointestinal: Present: soft, non-tender - Integumentary Integumentary: clear, warm, dry - Musculoskeletal Musculoskeletal: left sided weakness - Neurologic Neurologic: CNII-XII intact, other (abnorla celio from left hemiparesis) - Psychiatric Psychiatric: memory intact, appropriate mood/affect, intact judgment & insight - Labs CBC & Chem 7: 10/17/17 06:08 10/18/17 07:41 Labs: Abnormal lab results 10/18/17 10/19/17 10/19/17 Range/Units 22:12 12:15 17:07 POC Glucose 116 H 127 H (70-105) Magnesium 1.40 L (1.7-2.3) mg/dL
[2017-10-19] MEDS: ZESTRIL PO SCH (23:03)
[2017-10-19] MEDS: KCL 10MEQ/100ML 10 MEQ/100 ML BAG IV SCH (23:05)
[2017-10-20] MEDS: HumaLOG SUB-Q SCH ×5 (00:38→21:36)
--- NOTE | 2017-10-20 09:59 | Progress Note ---
Assessment and Plan Acute CVA (cerebrovascular accident) with new left hemiparesis -Continue aspirin and Lipitor, PT/OT. -Head CT scan showed remote lacunar infarct in the left thalamus. -MRI brain showed subacute ischemia on the right emmanuelle and MRA was normal -Neurology following. -Echo shows 55-60% EF. Hypokalemia and hypomagnesemia. -Will replete. we will monitor levels. Uncontrolled HTN (hypertension) -Continue with metoprolol and amlodipine. NIDDM (type 2 diabetes mellitus) -Blood glucose controlled on sliding scale insulin and metformin. and Consistent CHO diet -A1c: 8.7 HLD (hyperlipidemia) -Cont statins Mild protein-calorie malnutrition -Dietitian following. DVT PPx with lovenox Disposition: Awaiting rehab placement Subjective Date of service: 10/20/17 Principal diagnosis: acute stroke Interval history: Pt seen and examined. No new complaint. Awaiting placement for acute inpt rehab. Review laboratory and radiological data Objective - Constitutional Vitals: Vital Signs - 12hr 10/20/17 10/20/17 10/20/17 00:53 04:44 08:19 Temperature 98.6 F 97.6 F 97.9 F Pulse Rate 92 H 79 81 Respiratory 20 20 20 Rate Blood Pressure 110/83 118/79 130/85 O2 Sat by Pulse 94 95 95 Oximetry General appearance: Present: no acute distress, well-nourished - EENT Eyes: PERRL, EOM intact Ears: bilateral: normal - Neck Neck: supple, normal ROM - Respiratory Respiratory effort: normal Respiratory: bilateral: CTA - Cardiovascular Rhythm: regular Heart Sounds: Present: S1 & S2. Absent: gallop, rub Extremities: pulses intact, No edema, normal color, Full ROM - Gastrointestinal General gastrointestinal: Present: soft, non-tender, non-distended, normal bowel sounds - Integumentary Integumentary: clear, warm, dry - Musculoskeletal Musculoskeletal: 1, strength equal bilaterally - Neurologic Neurologic: moves all extremities - Psychiatric Psychiatric: memory intact, appropriate mood/affect, intact judgment & insight - Labs CBC & Chem 7: 10/17/17 06:08 10/18/17 07:41 Labs: Abnormal lab results 10/19/17 10/19/17 10/19/17 Range/Units 12:15 17:07 22:57 POC Glucose 116 H 127 H 129 H (70-105)
[2017-10-20] MEDS: ZESTRIL PO SCH (12:23)
[2017-10-20] MEDS: HCTZ PO SCH ×2 (12:23→12:26)
[2017-10-20] MEDS: SODIUM CHLORIDE FLUSH SYRINGE 10 ML IV SCH ×2 (12:24→21:39)
[2017-10-20] MEDS: BABY ASPIRIN PO SCH (12:25)
[2017-10-20] MEDS: NORVASC PO SCH (12:25)
[2017-10-20] MEDS: HEPARIN SUB-Q SCH ×2 (12:28→21:38)
[2017-10-20] MEDS: ACTOS PO SCH (12:45)
[2017-10-20] MEDS: GLUCOPHAGE PO SCH ×2 (12:47→18:14)
[2017-10-20] MEDS: LOPRESSOR PO SCH (13:05)
[2017-10-20] MEDS: HABITROL TD SCH (18:15)
--- NOTE | 2017-10-21 02:22 | Progress Note ---
Assessment and Plan Assessment and plan: 2 y/o AAM with PMH of HTN T2DM HLD and past CVA with Rt Hemiparesis comes in for Lt sided weakness since last night.Able to walk but feels weak on L side.Also had difficulty talking. Acute CVA (cerebrovascular accident) with new left hemiparesis -Continue aspirin and Lipitor, PT/OT. -Head CT scan showed remote lacunar infarct in the left thalamus. -MRI brain showed subacute ischemia on the right emmanuelle and MRA was normal -Neurology following. -Echo shows 55-60% EF. Hypokalemia and hypomagnesemia. -Will replete. we will monitor levels. Uncontrolled HTN (hypertension) -Continue with metoprolol and amlodipine. NIDDM (type 2 diabetes mellitus) -Blood glucose controlled on sliding scale insulin and metformin. and Consistent CHO diet -A1c: 8.7 HLD (hyperlipidemia) -Cont statins Mild protein-calorie malnutrition -Dietitian following. DVT PPx with lovenox Disposition: Awaiting rehab placement Hospitalist Physical - Constitutional Vitals: Temp Pulse Resp BP Pulse Ox 98.4 F 84 18 120/75 96 10/20/17 23:55 10/20/17 23:55 10/20/17 23:55 10/20/17 23:55 10/20/17 23:55 General appearance: Present: no acute distress, well-nourished Results - Labs CBC & Chem 7: 10/17/17 06:08 10/18/17 07:41 Labs: Laboratory Last Values WBC 11.1 K/mm3 (4.5-11.0) H 10/17/17 06:08 RBC 4.81 M/mm3 (3.65-5.03) 10/17/17 06:08 Hgb 14.6 gm/dl (11.8-15.2) 10/17/17 06:08 Hct 44.0 % (35.5-45.6) D 10/17/17 06:08 MCV 92 fl (84-94) 10/17/17 06:08 MCH 31 pg (28-32) 10/17/17 06:08 MCHC 33 % (32-34) 10/17/17 06:08 RDW 15.3 % (13.2-15.2) H 10/17/17 06:08 Plt Count 299 K/mm3 (140-440) 10/17/17 06:08 Lymph % (Auto) 28.1 % (13.4-35.0) 10/17/17 06:08 [place] % (Auto) 7.7 % (0.0-7.3) H 10/17/17 06:08 Eos % (Auto) 2.0 % (0.0-4.3) 10/17/17 06:08 Baso % (Auto) 0.7 % (0.0-1.8) 10/17/17 06:08 Lymph # 3.1 K/mm3 (1.2-5.4) 10/17/17 06:08 [place] # 0.9 K/mm3 (0.0-0.8) H 10/17/17 06:08 Eos # 0.2 K/mm3 (0.0-0.4) 10/17/17 06:08 Baso # 0.1 K/mm3 (0.0-0.1) 10/17/17 06:08 Seg Neutrophils % 61.5 % (40.0-70.0) 10/17/17 06:08 Seg Neutrophils # 6.8 K/mm3 (1.8-7.7) 10/17/17 06:08 PT 12.6 Sec. (12.2-14.9) 10/16/17 15:32 INR 0.90 (0.87-1.13) 10/16/17 15:32 APTT 28.6 Sec. (24.2-36.6) 10/16/17 15:32 Thrombin Time 16.1 Sec. (15.1-19.6) 10/16/17 15:32 Sodium 141 mmol/L (137-145) 10/18/17 07:41 Potassium 3.2 mmol/L (3.6-5.0) L 10/18/17 07:41 Chloride 98.7 mmol/L (98-107) 10/18/17 07:41 Carbon Dioxide 25 mmol/L (22-30) 10/18/17 07:41 Anion Gap 21 mmol/L 10/18/17 07:41 BUN 8 mg/dL (9-20) L 10/18/17 07:41 Creatinine 0.6 mg/dL (0.8-1.5) L 10/18/17 07:41 Estimated GFR > 60 ml/min 10/18/17 07:41 BUN/Creatinine Ratio 13 % 10/18/17 07:41 Glucose 153 mg/dL (75-100) H 10/18/17 07:41 POC Glucose 82 (70-105) 10/20/17 21:34 Hemoglobin A1c 8.7 % (4-6) H 10/16/17 23:07 Calcium 9.8 mg/dL (8.4-10.2) 10/18/17 07:41 Magnesium 1.40 mg/dL (1.7-2.3) L 10/18/17 22:12 Total Bilirubin 0.40 mg/dL (0.1-1.2) 10/17/17 06:08 AST 12 units/L (5-40) 10/17/17 06:08 ALT 13 units/L (7-56) 10/17/17 06:08 Alkaline Phosphatase 62 units/L (35-129) 10/17/17 06:08 Troponin T < 0.010 ng/mL (0.00-0.029) 10/16/17 15:32 Total Protein 6.6 g/dL (6.3-8.2) 10/17/17 06:08 Albumin 3.5 g/dL (3.9-5) L 10/17/17 06:08 Albumin/Globulin Ratio 1.1 % 10/17/17 06:08 Triglycerides 99 mg/dL (2-149) 10/17/17 06:08 Cholesterol 192 mg/dL (50-199) 10/17/17 06:08 LDL Cholesterol Direct 141 mg/dL (50-130) H 10/17/17 06:08 HDL Cholesterol 26 mg/dL (40-59) L 10/17/17 06:08 Cholesterol/HDL Ratio 7.38 % 10/17/17 06:08
--- NOTE | 2017-10-21 02:24 | Discharge Summary ---
Providers - Providers Date of Admission: 10/16/17 16:32 Attending physician: SOCORRO ALCARAZ MD 10/16/17 22:39 Consult to Physician [CONS] Routine Comment: Consulting Provider: MALCOM QUEZADA Physician Instructions: Reason For Exam: cva 10/16/17 22:40 Occupational Therapy Evaluate and Treat [CONS] Routine Comment: Reason For Exam: Neuro deficits Physical Therapy Evaluation and Treat [CONS] Routine Comment: Reason For Exam: Neuro deficits Primary care physician: POLE INCISOR OPERATOR Hospitalization Condition: Stable Hospital course: 62-year-old man with past medical history of hypertension diabetes hyperlipidemia previous CVA with right hemiparesis who presented with left- sided weakness and expressive aphasia. He was found to have acute CVA of the right emmanuelle, he received neurology consult, his medications were optimized for secondary prevention. His electrolytes were repleted, his blood pressure medications optimized. He was counseled about tobacco cessation. He is being discharged to outpatient rehabilitation facility Diagnosis Subacute CVA Hypokalemia Hypomagnesemia Hypertension Type 2 diabetes, on oral medications Hyperlipidemia Mild malnutrition tobacco abuse Disposition: [id number] INPT REHAB FACILITY Time spent for discharge: 33 minutes Core Measure Documentation - Palliative Care Palliative Care/ Comfort Measures: Not Applicable - Core Measures Any of the following diagnoses?: stroke - Stroke Discharge Requirements Statin for LDL = or >70 mg/dl on DC: Yes Anticoag for atrial fib/atrial flutter: Not Applicable Antithrombotic for ischemic stroke: Yes Exam - Constitutional Vitals: Temp Pulse Resp BP Pulse Ox 98.4 F 84 18 120/75 96 10/20/17 23:55 10/20/17 23:55 10/20/17 23:55 10/20/17 23:55 10/20/17 23:55 General appearance: Present: no acute distress, well-nourished - EENT Eyes: Present: PERRL ENT: hearing intact, clear oral mucosa - Neck Neck: Present: supple, normal ROM - Respiratory Respiratory effort: normal Respiratory: bilateral: CTA - Cardiovascular Heart Sounds: Present: S1 & S2. Absent: rub, click - Extremities Extremities: pulses symmetrical, No edema Peripheral Pulses: within normal limits - Abdominal General gastrointestinal: Present: soft, non-tender, non-distended, normal bowel sounds Male genitourinary: Present: normal - Integumentary Integumentary: Present: clear, warm, dry - Musculoskeletal Musculoskeletal: strength equal bilaterally, right sided weakness, left sided weakness (worse side) - Psychiatric Psychiatric: appropriate mood/affect, intact judgment & insight - Neurologic Neurologic: CNII-XII intact, moves all extremities Plan Follow up with: PRIMARY CARE,MD [Primary Care Provider] - 3-5 Days Prescriptions: oxyCODONE /ACETAMINOPHEN [Percocet 5/325 mg] 1 tab PO Q6H PRN #7 tablet PRN Reason: Pain, Moderate (4-6)
[2017-10-21 04:44] LABS: BUN/Creatinine Ratio 27; Blood Urea Nitrogen 24 mg/dL (9-20); Calcium 9.4 mg/dL (8.4-10.2); Hemolysis Index 18
[2017-10-21] MEDS: LOPRESSOR PO SCH ×2 (05:50→10:30)
[2017-10-21] MEDS: HumaLOG SUB-Q SCH ×2 (08:33→12:28)
[2017-10-21] MEDS: GLUCOPHAGE PO SCH (09:00)
[2017-10-21] MEDS: ACTOS PO SCH (09:00)
[2017-10-21] MEDS: BABY ASPIRIN PO SCH (10:28)
[2017-10-21] MEDS: HCTZ PO SCH ×2 (10:29)
[2017-10-21] MEDS: NORVASC PO SCH (10:30)
[2017-10-21] MEDS: HEPARIN SUB-Q SCH (10:30)
[2017-10-21] MEDS: SODIUM CHLORIDE FLUSH SYRINGE 10 ML IV SCH (10:31)
[2017-10-21] MEDS: ZESTRIL PO SCH (10:31)
[2017-10-21] MEDS: HABITROL TD SCH (14:38)
[2017-10-21 16:21] VITALS: BP 116/81
== END 2017-10-21 17:15 | DRG 65 ==
LOC: ED 15:00 → 4A 16:32
PROVIDERS: ADMIT Internal Medicine; ATTEND Internal Medicine
PROC: 3E0234Z Introduction of Serum, Toxoid and Vaccine into Muscle, Percutaneous Approach (ICD-10-PCS; principal; 2017-10-17)
DX: I63.8 Other cerebral infarction (principal); I69.951 Hemiplegia and hemiparesis following unspecified cerebrovascular disease affecting right dominant side; E44.1 Mild protein-calorie malnutrition; I10 Essential (primary) hypertension; E87.6 Hypokalemia; E11.9 Type 2 diabetes mellitus without complications; E78.5 Hyperlipidemia, unspecified; F17.210 Nicotine dependence, cigarettes, uncomplicated; E83.42 Hypomagnesemia; Z68.24 Body mass index [BMI] 24.0-24.9, adult; Z71.6 Tobacco abuse counseling; Z23 Encounter for immunization
CPT/HCPCS: 36415; 70450; 70544; 70551; 80048; 80053; 80061; 82962; 83036; 83735; 84484; 85025; 85610; 85670; 85730; 90686; 90732; 93005; 93010; 93306; 93880; 94760; 99406; A9270-GY; G8987-GO; G8988-GO; J1644; J1815; J3475; J3480

== ENCOUNTER 2018-02-07 17:07 | Emergency (ER) | payer MEDICARE ==
[2018-02-07 17:14] VITALS: BP 144/96
[2018-02-07 21:21] LABS: Basophils # (Auto) 0.1 K/mm3 (0.0-0.1); Basophils % (Auto) 0.5 % (0.0-1.8); Eosinophils # (Auto) 0.3 K/mm3 (0.0-0.4); Eosinophils % (Auto) 2.5 % (0.0-4.3); Hematocrit 37.6 % (35.5-45.6); Hemoglobin 12.7 gm/dl (11.8-15.2); Lymphocytes # (Auto) 4.3 K/mm3 (1.2-5.4); Lymphocytes % (Auto) 34.2 % (13.4-35.0); Mean Corpuscular HGB Conc 34 % (32-34); Mean Corpuscular Hemoglobin 27 pg (28-32); Mean Corpuscular Volume 81 fl (84-94); Monocytes # (Auto) 1.2 K/mm3 (0.0-0.8); Monocytes % (Auto) 9.6 % (0.0-7.3); Platelet Count 293 K/mm3 (140-440); Red Blood Count 4.66 M/mm3 (3.65-5.03); Red Cell Distribution Width 16.4 % (13.2-15.2)
--- NOTE | 2018-02-07 21:21 | Emergency Department Report ---
ED Medical Clearance HPI - General Chief complaint: Medical Clearance Stated complaint: BLOOD PRESSURE Time Seen by Provider: 02/07/18 20:38 Source: patient Mode of arrival: Wheelchair - History of Present Illness Initial comments: The patient is a 62-year-old -[place] male patient presents for medication refill presents with son recently sound assisted question refill for BP hyperlipidemia diabetes is status post CVA 3 months ago patient denies acute complaint at this time awaiting new PCP affiliation [facility] Dr. Tapia awaiting appointment, last labs noted 10/2017 Complaint: other (medication refill ) Onset/Timin -: week(s) Place: home Alledged Intoxication: No Compliant with Home Medications: No ( ) Associated Symptoms: denies: chest pain, shortness of breath, palpitations, diaphoresis, denies other symptoms, confusion, cough, fever/chills, headaches, anorexia, malaise, nausea/vomiting, rash, seizure, syncope, weakness Treatments Prior to Arrival: none Home medications: Previous Rx's Medication Instructions Recorded Last Taken Type Nicotine [Habitrol] 7 mg TD Q24H patch 10/21/17 Unknown Rx oxyCODONE /ACETAMINOPHEN [Percocet 1 tab PO Q6H PRN #7 tablet 10/21/17 Unknown Rx 5/325 mg] Aspirin [Aspirin BABY CHEW TAB] 81 mg PO QDAY #15 tab.chew 02/07/18 Unknown Rx AtorvaSTATin [Lipitor] 80 mg PO QHS #15 tablet 02/07/18 Unknown Rx Hydrochlorothiazide [HCTZ] 25 mg PO QDAY #15 tablet 02/07/18 Unknown Rx Lisinopril [Zestril TAB] 40 mg PO DAILY #15 tablet 02/07/18 Unknown Rx Lispro Insulin [Humalog] 0 unit SUB-Q ACHS #1 ampul 02/07/18 Unknown Rx Metoprolol [Lopressor TAB] 25 mg PO BID #30 tablet 02/07/18 Unknown Rx Pioglitazone HCl [Actos] 30 mg PO DAILY #15 tablet 02/07/18 Unknown Rx amLODIPine [Norvasc] 10 mg PO DAILY #15 tablet 02/07/18 Unknown Rx metFORMIN [Glucophage] 1,000 mg PO BID #30 tablet 02/07/18 Unknown Rx Allergies/Adverse reactions: Allergies Allergy/AdvReac Type Severity Reaction Status Date / Time No Known Allergies Allergy Verified 10/16/17 22:42 ED Review of Systems ROS: Stated complaint: BLOOD PRESSURE Other details as noted in HPI Constitutional: denies: chills, fever Eyes: denies: eye pain, eye discharge, vision change ENT: denies: ear pain, throat pain Respiratory: denies: cough, shortness of breath, wheezing Cardiovascular: denies: chest pain, palpitations Endocrine: no symptoms reported Gastrointestinal: denies: abdominal pain, nausea, diarrhea Genitourinary: denies: urgency, dysuria Musculoskeletal: arthralgia, myalgia. denies: back pain, joint swelling Skin: denies: rash, lesions Neurological: weakness (generalized left sided weakness uses wheel chair at home ). denies: headache, paresthesias, confusion Psychiatric: denies: anxiety, depression Hematological/Lymphatic: denies: easy bleeding, easy bruising ED Past Medical Hx - Past Medical History Previous Medical History?: Yes Hx Hypertension: Yes Hx CVA: Yes Hx Diabetes: Yes Additional medical history: high cholesterol - Surgical History Past Surgical History?: No - Social History Smoking Status: Former Smoker Substance Use Type: None - Medications Home Medications: Home Medications Medication Instructions Recorded Confirmed Last Taken Type Nicotine [Habitrol] 7 mg TD Q24H patch 10/21/17 Unknown Rx oxyCODONE /ACETAMINOPHEN [Percocet 1 tab PO Q6H PRN #7 tablet 10/21/17 Unknown Rx 5/325 mg] Aspirin [Aspirin BABY CHEW TAB] 81 mg PO QDAY #15 tab.chew 02/07/18 Unknown Rx AtorvaSTATin [Lipitor] 80 mg PO QHS #15 tablet 02/07/18 Unknown Rx Hydrochlorothiazide [HCTZ] 25 mg PO QDAY #15 tablet 02/07/18 Unknown Rx Lisinopril [Zestril TAB] 40 mg PO DAILY #15 tablet 02/07/18 Unknown Rx Lispro Insulin [Humalog] 0 unit SUB-Q ACHS #1 ampul 02/07/18 Unknown Rx Metoprolol [Lopressor TAB] 25 mg PO BID #30 tablet 02/07/18 Unknown Rx Pioglitazone HCl [Actos] 30 mg PO DAILY #15 tablet 02/07/18 Unknown Rx amLODIPine [Norvasc] 10 mg PO DAILY #15 tablet 02/07/18 Unknown Rx metFORMIN [Glucophage] 1,000 mg PO BID #30 tablet 02/07/18 Unknown Rx ED Physical Exam - General Limitations: Physical Limitation General appearance: alert, in no apparent distress - Head Head exam: Present: atraumatic, normocephalic - Eye Eye exam: Present: normal appearance, PERRL, EOMI Pupils: Present: normal accommodation - ENT ENT exam: Present: mucous membranes moist - Neck Neck exam: Present: normal inspection, full ROM. Absent: lymphadenopathy, thyromegaly - Respiratory Respiratory exam: Present: normal lung sounds bilaterally. Absent: respiratory distress, wheezes, stridor, chest wall tenderness - Cardiovascular Cardiovascular Exam: Present: regular rate, normal rhythm, normal heart sounds. Absent: systolic murmur, diastolic murmur, rubs, gallop - GI/Abdominal GI/Abdominal exam: Present: soft, normal bowel sounds. Absent: distended, tenderness, guarding, rebound, rigid, organomegaly, mass, bruit, pulsatile mass , hernia - Rectal Rectal exam: Present: deferred - Extremities Exam Extremities exam: Present: normal inspection, normal capillary refill, other ( left side weakness 4/5, stands ambulates gait is steady ). Absent: tenderness, pedal edema, joint swelling, calf tenderness - Back Exam Back exam: Present: normal inspection, full ROM. Absent: tenderness, CVA tenderness (R), CVA tenderness (L) - Neurological Exam Neurological exam: Present: alert, oriented X3, abnormal gait - Expanded Neurological Exam Expanded Neurological exam: Absent: ataxia Patient oriented to: Present: person, place, time Speech: Present: fluid speech Cranial nerves: EOM's Intact: Normal, Gag Reflex: Normal, Tongue Deviation: Normal, Nystagmus: Normal, Facial Sensation: Normal, Facial Palsy with Forehead Movement: Normal Cerebellar function: Finger to Nose: Normal, Heel to Wilson: Normal, Romberg: Normal Upper motor neuron: Eugene Neglect: Normal, Pronator Drift: Abnormal Left, Babinski Sign: Normal, Sensory Extinction: Normal Sensory exam: Upper Extremity Light Touch: Abnormal Left, Upper Extremity Pin Prick: Abnormal Left, Upper Extremity Temperature: Normal, UE 2 Point Discrimination: Normal, Lower Extremity Light Touch: Abnormal Left, Lower Extremity Pin Prick: Abnormal Left, Lower Extremity Temperature: Normal, LE 2 Point Discrimination: Normal Motor strength exam: RUE: 5, LUE: 4, RLE: 5, LLE: 4 DTR: bicep (R): 2+, bicep (L): 2+, tricep (R): 2+, tricep (L): 2+, knee (R): 2+ , knee (L): 2+, ankle (R): 2+, ankle (L): 2+ Best Eye Response ([place]): (4) open spontaneously Best Motor Response ([place]ylan): (6) obeys commands Best Verbal Response (Rylan): (5) oriented Rylan Total: 15 - Psychiatric Psychiatric exam: Present: normal affect, normal mood - Skin Skin exam: Present: warm, dry, intact, normal color. Absent: rash ED Course Vital Signs 02/07/18 17:08 Temperature 98.7 F Pulse Rate 99 H Respiratory 20 Rate Blood Pressure 144/96 O2 Sat by Pulse 99 Oximetry ED Medical Decision Making - Lab Data Result diagrams: 02/07/18 21:02 02/07/18 21:02 - Medical Decision Making plan: will rx medication refill pt will follow up with [facility] in 2-3 days , discussed same wtih patient and son both agree and verbalized understanding of treatment and discharge plan. cmp, cbc, noted , pt refused ua , pt appears well, well hydrated well nourished , with nad at this time, ED Disposition Clinical Impression: Medication refill Disposition: [id number] TO HOME OR SELFCARE Is pt being admited?: No Does the pt Need Aspirin: No Condition: Stable Prescriptions: AtorvaSTATin [Lipitor] 80 mg PO QHS #15 tablet amLODIPine [Norvasc] 10 mg PO DAILY #15 tablet Aspirin [Aspirin BABY CHEW TAB] 81 mg PO QDAY #15 tab.chew Hydrochlorothiazide [HCTZ] 25 mg PO QDAY #15 tablet Lisinopril [Zestril TAB] 40 mg PO DAILY #15 tablet Lispro Insulin [Humalog] 0 unit SUB-Q ACHS #1 ampul metFORMIN [Glucophage] 1,000 mg PO BID #30 tablet Metoprolol [Lopressor TAB] 25 mg PO BID #30 tablet Pioglitazone HCl [Actos] 30 mg PO DAILY #15 tablet Referrals: [facility] [Outside] - 3-5 Days MALCOM TAPIA MD [Referring] - 3-5 Days Forms: Work/School Release Form(ED) Time of Disposition: 23:47
[2018-02-07 21:35] LABS: Alanine Aminotransferase 44 units/L (7-56); Albumin 4.4 g/dL (3.9-5); BUN/Creatinine Ratio 13; Blood Urea Nitrogen 10 mg/dL (9-20); Hemolysis Index 1
== END 2018-02-07 23:50 | disposition home or self-care (01) ==
LOC: ED 17:07
DX: Z76.0 Encounter for issue of repeat prescription (principal); I10 Essential (primary) hypertension; E11.9 Type 2 diabetes mellitus without complications; E78.00 Pure hypercholesterolemia, unspecified; Z87.891 Personal history of nicotine dependence; Z79.4 Long term (current) use of insulin; Z79.82 Long term (current) use of aspirin; Z86.73 Personal history of transient ischemic attack (TIA), and cerebral infarction without residual deficits
CPT/HCPCS: 36415; 80053; 85025; 99283